=== PATIENT | male | born 1995 | race Caucasian/White ===

== ENCOUNTER 2018-08-14 03:24 | Emergency (ER) | payer BC, MEDICAID, SELFPAY ==
[2018-08-14 03:25] VITALS: BP 145/79; PULSE 103; RESP 27; TEMP 36.8; O2SAT 98; BMI 29.9
--- NOTE | 2018-08-14 03:37 | EKG12_ITS ---
Test Reason : CP Blood Pressure : / mmHG Vent. Rate : 097 BPM Atrial Rate : 097 BPM P-R Int : 164 ms QRS Dur : 090 ms QT Int : 332 ms P-R-T Axes : 026 010 020 degrees QTc Int : 421 ms Normal sinus rhythm Minimal voltage criteria for LVH, may be normal variant Borderline ECG Confirmed by INEZ ALONZO ([id number]), market editor SYLVESTER MAGALLON ([id number]) on 08/17/2018 4:47:04 PM Referred By: LANEY Confirmed By:INEZ ALONZO
[2018-08-14] MEDS: Mag Hydrox/Al Hydrox/Simeth 30 ML UDC PO (03:40)
--- NOTE | 2018-08-14 03:40 | ED.DCSUM_ITS ---
History of Present Illness Chief Complaint: Chest Pain Informant: Patient Narrative: Patient stated the last few days she has had some esophageal burning and pain when he swallows. He is never had this before. He did try Zantac yesterday x1 with minimal relief. Everything he swallows hurts. He denies any excessive alcohol use. He did not get any pills stuck to cause this. No history of GERD. Worsened by swallowing. Relieved by not swallowing. Current severity is mild to moderate. Denies any medical problems. Past Medical History - Allergies and Home Meds Allergies/Adverse Reactions: Allergies promethazine HCl [From Phenergan] Adverse Reaction (Verified 08/14/18 03:27) Other Primary Care Physician: Otto Gould III, MD [Primary Care Provider] - Prior records reviewed: Yes Past Medical History: None Surgical History: appendectomy Lives: With Family Smoking Status: Never smoker Alcohol: None Drugs: None Review of Systems General: Denies: Chills, Fever, Sweats Eyes: Denies: Visual changes - bilaterally, Diplopia ENT: Denies: Rhinorrhea, Sore throat Cardiovascular: Reports: Chest pain. Denies: Palpitations Respiratory: Denies: Dyspnea, Cough, Dyspnea on exertion Gastrointestinal: Denies: Abdominal pain, Nausea, Vomiting, Diarrhea, Melena, Hematochezia Genitourinary: Denies: Dysuria, Hematuria, Frequency Musculoskeletal: Denies: Back pain, Extremity Pain Skin: Denies: Rash, Wounds Neurological: Denies: Headache, Weakness, Numbness Physical Exam Vital Signs/Narrative: Vital Signs Temp Pulse Resp BP Pulse Ox 08/14/18 03:25 98.3 F 103 H 27 H 145/79 H 98 Inital Vital Signs reviewed: Yes General: Well nourished, Well developed, No Acute Distress Head: Normocephalic, Atraumatic Eyes: Perrl, EOMI ENT: Moist mucous membranes, No rhinorrhea Neck: Supple, Nontender Cardiovascular: Regular rate, Regular rhythm, No murmurs Respiratory: No distress, CTA bilaterally, Chest nontender Abdomen: Soft, Nontender, Nondistended, Normal bowel sounds Back: Nontender, Normal Inspection Extremities: Nontender, No edema Skin: Normal color, No rash Neurological: Alert, Oriented x3, Cranial nerves II-XII grossly intact, Normal Strength, Normal Sensation Psychological: Normal affect, Normal Mood Diagnostic/Tx/Re-eval - EKG Initial EKG Interpretation: Sinus Rhythm, No Acute Injury Pattern Prior: No Prior - Medical Decision Making I feel the patient has esophagitis. It is unclear the cause however. He will continue Zantac and has this at home. He will use Mylanta [id number] and cold milk. Given a GI cocktail in the emergency department. EKG was obtained shows sinus rhythm at a rate of 97 without acute ischemia. This is not cardiac in my opinion. This appears to be more esophagitis related. We will follow-up as an outpatient. ED Disposition - Plan for ED Patient: Disposition: [facility] Diagnosis: Esophagitis Instructions: Esophagitis Referrals: Otto Gould III, MD [Primary Care Provider] -
[2018-08-14 04:06] VITALS: BP 140/76; PULSE 97; RESP 20; O2SAT 96
== END 2018-08-14 04:07 ==
PROVIDERS: Emergency Provider Emergency Medicine; Family Provider Family Medicine; PCP Family Medicine
DX: K20.9 Esophagitis, unspecified (principal)
CPT/HCPCS: 93005; 99283

== ENCOUNTER 2020-10-09 12:21 | Emergency (ER) | payer BC, SELFPAY ==
[2020-10-09 12:22] VITALS: BP 138/79; PULSE 79; RESP 16; TEMP 36.4; O2SAT 100; BMI 31.4
--- NOTE | 2020-10-09 12:34 | EX.ED.DYSGE1 ---
HPI History of Present Illness Chief Complaint: Rash Informant: patient Narrative Narrative: Patient presents with poison tabitha on the left leg. There is been present for 1 week. It itches. It turned a little bit darker over the weekend which is why he came in today. There is been no bleeding or drainage. Has been trying topical hydrocortisone cream without any relief. He does have a history of poison tabitha in the past. He denies any trouble swallowing, tongue swelling. He denies any lesions in his mouth. PFSH PFSH Home Medications prednisone 40 mg PO DAILY #14 tablet 10/09/20 [Rx Last Taken Unknown] Allergy/AdvReac Type Severity Reaction Status Date / Time promethazine HCl AdvReac Other Verified 10/09/20 12:23 [From Phenergan] Surgical History History of appendectomy Social History Smoking Status: Never smoker ROS ROS ED Constitutional Constitutional ED: Denies chills or fever(s) Eyes Eyes: Denies blurry vision, change in vision, diplopia or loss of vision ENT ENT ED: Reports other; Denies ear pain, rhinorrhea or sore throat Cardiovascular Cardiovascular: Denies chest pain, palpitations or racing heartbeat Respiratory/Chest Respiratory/Chest: Denies cough, dyspnea, dyspnea on exertion or sputum Gastrointestinal Gastrointestinal: Denies abdominal pain, diarrhea, nausea or vomiting Genitourinary Genitourinary ED: Denies dysuria, hematuria or urinary frequency Musculoskeletal Musculoskeletal: Denies back pain, myalgias or neck pain Integumentary Reports rash Neurologic Neurologic: Denies headache(s) or weakness Psychiatric Psychiatric: Denies anxiety or depression Endocrine Endocrinology: Denies polydipsia or polyuria Hematologic/Lymphatic Hematologic/Lymphatic: Denies easy bleeding or easy bruising Allergic/Immunologic Allergic/Immunologic ED: Reports other EXAM Physical Exam Const Vital Signs: 10/09/20 12:22 Temperature 97.5 F L Temperature Source Temporal Pulse Rate 79 Respiratory Rate 16 Blood Pressure 138/79 H Blood Pressure Mean 98 Pulse Ox 100 Oxygen Delivery Method Room Air Positive well nourished and well developed General Appearance ED: well developed HEENT Reports normocephalic Negative for trauma Eyes PERRL and EOMs intact bilaterally Extremity normal to inspection General Extremety ED: Negative for edema or tenderness General Extremity: Negative for edema Neuro oriented x3 Sensorium / Orientation: alert Motor Exam: strength 5/5 throughout Psych mental status grossly normal Skin Skin Narrative: Contact dermatitis appearing rash on the left mid tibial area on the lateral side. No surrounding erythema. No drainage. The darker appearing color in the middle of it does appear to be dried blood Rashes: rashes noted MDM MDM MDM Narrative Medical decision making narrative: Patient appears to have a contact dermatitis, likely poison tabitha. I will give him prednisone to help with the symptoms. He will continue topical hydrocortisone cream. He will follow-up with his PCP. Discharge Plan Triage Chief Complaint: Rash ED Provider: Jordi Shine Dx/Rx/DC Orders Clinical Impression: Contact dermatitis Instructions: ED Poison Tabitha Rash Prescriptions: New prednisone 20 MG tablet 40 mg PO DAILY Qty: 14 RF: 0 Primary Care Provider: Otto Gould III Referrals: Otto Gould III, MD [Primary Care Provider] - Disposition Disposition: Home, self care
== END 2020-10-09 12:49 | disposition home or self-care (01) ==
LOC: ED 12:45
PROVIDERS: Emergency Provider Emergency Medicine; PCP Family Medicine
DX: L25.9 Unspecified contact dermatitis, unspecified cause (principal)
CPT/HCPCS: 99282

== ENCOUNTER 2022-10-31 02:18 | Emergency (ER) | payer BC, SELFPAY ==
--- NOTE | 2022-10-31 | RAD_ITS ---
EXAM: XR CHEST, 1 VIEW CLINICAL INDICATION: Pleuritic Pain Pleuritic Pain TECHNIQUE: Frontal view of the chest. COMPARISON: 05/19/2014. FINDINGS: LUNGS AND PLEURAL SPACES: Unremarkable. No consolidation or edema. No pneumothorax. No effusion. HEART: Unremarkable. Cardiac silhouette not enlarged. MEDIASTINUM: Central airways and mediastinal contour are unremarkable. BONES/JOINTS: Unremarkable. SOFT TISSUES: Unremarkable. RAD/Chest 1 View (Portable) IMPRESSION: No radiographic evidence of acute cardiopulmonary disease. Electronically Signed: Jay Tijerina MD at 3:31 EDT Reading Location ID and State: [facility] / [place] , Service support ,
[2022-10-31 02:19] VITALS: BP 153/79; PULSE 90; RESP 18; TEMP 36.6; O2SAT 97; BMI 33.4
[2022-10-31 02:21] VITALS: BP 153/79; PULSE 87; RESP 18; TEMP 36.6; O2SAT 96
--- NOTE | 2022-10-31 02:25 | EX.ED.DYSGE1 ---
HPI History of Present Illness Chief Complaint: Flank Pain Narrative Narrative: 27-year-old male who denies significant past medical history presents with left-sided flank pain/pleuritic chest pain/pain in his back since 7 PM yesterday. This was greater than 6 hours ago. He states he woke up at 7 PM and has pain at the top of my kidney. He denies any fevers or chills. No hematuria or dysuria, no colicky pain. He states when he tries to take a deep breath, he gets pain in his left back. It is mildly pleuritic in nature. He denies any DVT or PE risk factors. No swelling of his legs. No exacerbating or alleviating factors to his left-sided pain. He took Aleve without relief. PFSH PFS Home Medications prednisone 20 mg tablet 40 mg PO DAILY #14 TABLETS 10/09/20 [Rx Last Taken Unknown] Allergy/AdvReac Type Severity Reaction Status Date / Time promethazine HCl AdvReac Other Verified 10/09/20 12:23 [From Phenergan] Surgical History History of appendectomy Social History Smoking Status: Never smoker ROS ROS ED ROS Narrative Constitutional: No fever, no chills. HEENT: No sore throat. No neck pain. No loss of vision. No rhinorrhea. Cardiovascular: Left posterior pleuritic chest pain. No palpitations. No pedal edema. Respiratory: Occasional cough, no shortness of breath. Abdominal: No abdominal pain. No nausea. No vomiting. Genitourinary: No dysuria. No hematuria. Musculoskeletal: No myalgias. No arthralgias. Neurologic: No headaches. No dizziness. No lightheadedness. Skin: No rash. No change in color. Psychiatric: No depression. No anxiety. EXAM Physical Exam Narrative Exam Narrative: Afebrile. Vital signs noted. HEENT: Normocephalic. Atraumatic. PERRL, EOMI. Neck soft and supple. No point tenderness or step off. Cardiovascular: Regular rate and rhythm. No murmurs, rubs, or gallops appreciated. Respiratory: No tachypnea. Lungs clear to auscultation bilaterally. Gastrointestinal: Abdomen soft, nontender, with normoactive bowel sounds. No rebound or guarding. Neurological: Awake. Alert. Nonfocal, nonlateralizing. Skin: No rash. Normal color. No pallor. Musculoskeletal: No pedal edema. Full range of motion extremities. Const Vital Signs: 10/31/22 02:19 10/31/22 02:21 10/31/22 04:25 Temperature 97.9 F 97.9 F Temperature Source Temporal Temporal Pulse Rate 90 87 80 Respiratory Rate 18 18 20 H Blood Pressure 153/79 H 153/79 H 144/83 H Blood Pressure Mean 103 103 103 Pulse Ox 97 96 96 Oxygen Delivery Method Room Air Room Air Room Air MDM MDM MDM Narrative Medical decision making narrative: In the differential diagnosis is pneumothorax versus pulmonary embolism versus pneumonia. We will feel he is really having ACS pain as his history is not indicative of ischemic pain. Comprehensive work-up will be pursued. I do not think he is really having left flank pain consistent with ureterolithiasis as he denies any hematuria, colicky pain, or pain radiating to the front. Comprehensive work-up was pursued. EKG was obtained and interpreted by myself as normal sinus rhythm at 78 bpm without ectopy or acute ST changes. No STEMI. I reviewed his laboratory work, he has slightly elevated white count of 11.5 which I think is nonspecific and he has had leukocytosis in the past. Hemoglobin normal at 14.7 with hematocrit 44.5. Platelet count normal at 364. BMP is grossly unremarkable with normal BUN and creatinine, normal electrolytes. High-sensitivity troponin is less than 3, and this is greater than a 6-hour troponin. I do not feel that serial enzymes are indicated. I reviewed and independently interpreted his chest x-ray in 1 view which shows no acute process, no pneumothorax or infiltrate. I reviewed the radiology report which confirms my independent interpretation. I do not feel antibiotics are indicated. Of significance is his D-dimer which is elevated at 0.59. CTA of the chest was added to rule out pulmonary embolism. Patient declined analgesia here in the emergency department. I reviewed the CTA results and there is no evidence of pulmonary embolism. Urinalysis was reviewed and there is no evidence of infection or large amount of red blood cells making me think that he has a kidney stone and would require CT imaging of the abdomen and pelvis. I do not feel antibiotics are indicated. At this point in time, I feel he can be discharged safely home with follow-up to her primary care provider. I do not feel that he requires observation. Return instructions to the emergency department were reviewed. Disposition is discharged home in stable condition. History & Record Review Discussion w/independent historian: Patient Additional record(s) reviewed:: Prior ED visit (Noncontributory to current chief complaint) Lab Data Attestation: I reviewed the patient's lab results. Labs: Laboratory Results - last 24 hr 10/31/22 10/31/22 10/31/22 02:20 02:20 02:20 WBC 11.5 H RBC 5.30 Hgb 14.7 Hct 44.5 MCV 84.0 MCH 27.7 MCHC 33.0 RDW Std Deviation 35.6 RDW Coeff of Ariana 11.8 Plt Count 364 MPV 9.7 Immature Gran % (Auto) 0.300 Neut % (Auto) 56.2 Lymph % (Auto) 33.4 [place] % (Auto) 7.6 Eos % (Auto) 1.7 Baso % (Auto) 0.8 Absolute Neuts (auto) 6.4 Absolute Lymphs (auto) 3.83 Nucleated RBC % 0 D-Dimer Quant (PE/DVT) 0.59 H* Sodium 139 Potassium 3.9 Chloride 106 Carbon Dioxide 25.0 Anion Gap 8 BUN 15 Creatinine 1.07 Estim Creat Clear Calc 126.14 Est GFR (MDRD) Af Amer 108 Est GFR (MDRD) Non-Af 89 BUN/Creatinine Ratio 14.0 Glucose 101 Calcium 9.3 Troponin I High Sens < 3 L Urine Color Urine Clarity Urine pH Ur Specific [place] Urine Protein Urine Glucose (UA) Urine Ketones Urine Occult Blood Urine Nitrite Urine Bilirubin Urine Urobilinogen Ur Leukocyte Esterase Urine RBC Urine WBC Ur Squamous Epith Cells Urine Bacteria Urine Mucus 10/31/22 03:50 WBC RBC Hgb Hct MCV MCH MCHC RDW Std Deviation RDW Coeff of Ariana Plt Count MPV Immature Gran % (Auto) Neut % (Auto) Lymph % (Auto) [place] % (Auto) Eos % (Auto) Baso % (Auto) Absolute Neuts (auto) Absolute Lymphs (auto) Nucleated RBC % D-Dimer Quant (PE/DVT) Sodium Potassium Chloride Carbon Dioxide Anion Gap BUN Creatinine Estim Creat Clear Calc Est GFR (MDRD) Af Amer Est GFR (MDRD) Non-Af BUN/Creatinine Ratio Glucose Calcium Troponin I High Sens Urine Color Yellow Urine Clarity Clear Urine pH 6.5 Ur Specific [place] 1.010 Urine Protein 15 H Urine Glucose (UA) Normal Urine Ketones Negative Urine Occult Blood Negative Urine Nitrite Negative Urine Bilirubin Negative Urine Urobilinogen 1 H Ur Leukocyte Esterase Negative Urine RBC 0-5 SEEN Urine WBC 0 SEEN Ur Squamous Epith Cells 0 SEEN Urine Bacteria 0 SEEN Urine Mucus 0 SEEN Radiography Diagnostic Testing: Clinical Impression(s) from Imaging Studies Chest X-Ray 10/31/22 00:00 IMPRESSION: No radiographic evidence of acute cardiopulmonary disease. Electronically Signed: Jay Tijerina MD at 3:31 EDT , Chest CTA 10/31/22 03:08 IMPRESSION: 1. No evidence for pulmonary embolism, aortic aneurysm, or aortic dissection. 2. No evidence for acute cardiopulmonary pathology. 3. 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 No visualized discrete thymic mass. Suggest clinical correlation regarding possible autoimmune conditions. 4. Fatty liver. 5. Mild splenomegaly. Electronically Signed: Jay Tijerina MD at 4:05 EDT , Discharge Plan Triage Chief Complaint: Flank Pain ED Provider: Chase De La Cruz Dx/Rx/DC Orders Clinical Impression: Flank pain, acute, Pleuritic pain, Elevated d-dimer Instructions: ED Flank Pain, Uncertain Cause, ED Pain, Acute, Uncertain Cause Prescriptions: No Action prednisone 20 MG tablet 40 mg PO DAILY Qty: 14 0RF Primary Care Provider: Care Physician,No Primary Referrals: Sky Franks MD [Med Staff - Active Staff] - As soon as possible Care Physician,No Primary [Primary Care Provider] - Disposition Disposition: Home, Self Care
[2022-10-31 02:36] LABS: Absolute Lymphocyte Count 3.83 X10^3/uL (0.83-4.51); Absolute Neutrophil Count 6.4 X10^3/uL (2.0-7.7); Basophil# 0.09 X10^3/uL; Basophil% 0.8 % (0-1); Eosinophils% 1.7 % (0-5); Hematocrit 44.5 % (40-54); Hemoglobin 14.7 g/dL (13.0-16.5); Lymphocyte # 3.83 X10^3/ul (0.83-4.51); Lymphocyte % 33.4 % (19-41); Mean Corpuscular Hgb 27.7 pg (27.0-32.0); Mean Platelet Vol. 9.7 fl (6.2-12.0); Monocyte# 0.87 X10^3/uL; Monocyte% 7.6 % (0-10); NRBC Flagged by Analyzer 0 % (0-5); Neutrophil # 6.42 X10^3/uL (2.7-7.7); Neutrophil % 56.2 % (47-70); Platelet Count 364 K/mm3 (150-450); RBC Distribution Width CV 11.8 % (11.6-14.6); RBC Distribution Width SD 35.6 fl (35.1-43.9); White Blood Count 11.5 K/mm3 (4.4-11.0)
[2022-10-31] MEDS: 0.9% Normal Saline 1,000 ML 999 ML IV (02:47)
[2022-10-31 02:54] LABS: Anion Gap 8 (5-15); BUN 15 mg/dL (7-18); Calcium,Total 9.3 mg/dL (8.5-10.1); Chloride 106 mmol/L (98-107); Creatinine, Serum 1.07 mg/dL (0.70-1.30); EST Glomerular Filtration Rate 89 mL/min (>60); Est Glom Filt Rate - Afr Amer 108 mL/min (>60); Estimated Creatinine Clearance 126.14 ml/min; Glucose 101 mg/dL (74-106); Potassium 3.9 mmol/L (3.5-5.1); Sodium Level 139 mmol/L (136-145); Troponin-I HS < 3 pg/mL (3.0-78.0)
[2022-10-31 03:08] LABS: D-Dimer Quantitative (DVT/PE) 0.59 FEU/ug/m (0.27-0.49)
--- NOTE | 2022-10-31 03:08 | CT_ITS ---
EXAM: CT ANGIOGRAPHY CHEST WITHOUT AND WITH INTRAVENOUS CONTRAST CLINICAL INDICATION: Elevated D Dimer . Pleuritic chest pain. TECHNIQUE: Helically acquired angiography images were obtained of the chest without and with intravenous contrast. This CT exam was performed using one or more of the following dose reduction techniques: automated exposure control, adjustment of the mA and/or kV according to patient size, and/or use of iterative reconstruction technique. MIP reconstructed images were created and reviewed. CONTRAST: IV 100mL [id number] RADIATION DOSE: CTDIvol = 34.63 mGy, DLP = 533.22 mGy-cm COMPARISON: Chest x-ray 10/31/2022. FINDINGS: PULMONARY ARTERIES: Unremarkable. Normal in caliber. No evidence of pulmonary embolism. AORTA: Unremarkable. Normal in caliber. No evidence of dissection. GREAT VESSELS OF AORTIC ARCH: Unremarkable. Normal in caliber. No evidence of dissection. LUNGS AND PLEURAL SPACES: There is mild atelectasis in the posterior lower lung [place]. There is no demonstrated pulmonary infiltrate. No mass. No pleural effusion or thickening. No pneumothorax. HEART: Unremarkable. Heart size is normal. No pericardial effusion. No significant coronary artery calcifications. MEDIASTINUM: There is soft tissue prominence in the anterosuperior mediastinum which probably represents hyperplastic thymic tissue. There is no demonstrated discrete mass. No mediastinal or hilar adenopathy. Esophagus is unremarkable. No hiatal hernia. THYROID: Unremarkable. No thyroid lesions. BONES/JOINTS: Unremarkable. No suspicious lytic or blastic abnormality. LIVER: There is decreased attenuation of the liver consistent with fatty infiltration. SPLEEN: The spleen is mildly enlarged. CT/CTA Chest W/WO Contrast IMPRESSION: 1. No evidence for pulmonary embolism, aortic aneurysm, or aortic dissection. 2. No evidence for acute cardiopulmonary pathology. 3. 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 No visualized discrete thymic mass. Suggest clinical correlation regarding possible autoimmune conditions. 4. Fatty liver. 5. Mild splenomegaly. Electronically Signed: Jay Tijerina MD at 4:05 EDT ,
[2022-10-31 03:54] LABS: Bacteria 0 SEEN /hpf (None Seen); Mucous, Urine 0 SEEN /hpf (<or=2+); Squamous Epithelial Cells - UA 0 SEEN /hpf (0-5); White Blood Cells 0 SEEN /hpf (0-5)
[2022-10-31 04:13] LABS: Color, Urine Yellow (Yellow); Glucose, Dipstick Normal (Normal); Ketone-Dipstick Negative (Negative); Leukocyte Esterase-Dipstick Negative /ul (Negative); Nitrite-Dipstick Negative (Negative); Occult Blood-Urine Negative /ul (Negative); Protein-Dipstick 15 mg/dl (Negative); Urine Bilirubin Dipstick Negative (Negative); Urine Clarity Clear (Clear); Urine Urobilinogen 1 mg/dl (Normal); Urine pH 6.5 (5.0 - 8.0)
[2022-10-31 04:22] LABS: Red Blood Cells-Urine 0-5 SEEN /hpf (0-5)
[2022-10-31 04:25] VITALS: BP 144/83; PULSE 80; RESP 20; O2SAT 96
[2022-10-31 04:29] VITALS: BP 138/89; PULSE 79; RESP 21; O2SAT 95
== END 2022-10-31 04:44 | disposition home or self-care (01) ==
PROVIDERS: Emergency Provider Emergency Medicine; Visit Provider Emergency Medicine
DX: R10.9 Unspecified abdominal pain (principal); R07.81 Pleurodynia; R79.1 Abnormal coagulation profile; Z90.49 Acquired absence of other specified parts of digestive tract
CPT/HCPCS: 36415; 71045; 71275; 80048; 81001; 84484; 85025; 85379; 93005; 96360; 99284; J7030; Q9967; A4216

== ENCOUNTER 2022-12-07 03:09 | Emergency (ER) | payer OTHER, BC, SELFPAY ==
[2022-12-07 03:11] VITALS: BP 150/93; PULSE 97; RESP 18; TEMP 36.4; O2SAT 98; BMI 32.8
--- NOTE | 2022-12-07 03:16 | EDS_ITS ---
HPI History of Present Illness Chief Complaint: Laceration Informant: patient Narrative Narrative: Laceration left elbow at work. Excellently bumped in the metal object. Bleeding initially controlled with pressure. No anticoagulation medicines. Unknown tetanus history. No similar symptoms in the past. Tetanus Immunization: Unknown Prior similar symptoms: No PFSH PFSH Medical History no medical history Home Medications prednisone 20 mg tablet 40 mg (2 x 20 mg) PO DAILY #14 TABLETS 10/09/20 [Rx Last Taken Unknown] Allergy/AdvReac Type Severity Reaction Status Date / Time promethazine HCl AdvReac Other Verified 12/07/22 03:10 [From Phenergan] Surgical History History of appendectomy Social History Smoking Status: Never smoker ROS ROS ED Constitutional Constitutional ED: Denies chills, fever(s) or sweats Eyes Eyes: Denies change in vision ENT ENT ED: Denies dysphagia or sore throat Cardiovascular Cardiovascular: Denies chest pain, leg edema, palpitations or racing heartbeat Respiratory/Chest Respiratory/Chest: Denies cough, dyspnea or dyspnea on exertion Gastrointestinal Gastrointestinal: Denies abdominal pain, diarrhea, nausea or vomiting Genitourinary Genitourinary ED: Denies dysuria, hematuria or urinary frequency Musculoskeletal Musculoskeletal: Denies back pain, extremity pain or neck pain Integumentary Reports wounds; Denies rash Neurologic Neurologic: Denies headache(s), paresthesias or weakness EXAM Physical Exam Const Vital Signs: 12/07/22 03:11 Temperature 97.5 F L Temperature Source Temporal Pulse Rate 97 Respiratory Rate 18 Blood Pressure 150/93 H Blood Pressure Mean 112 Pulse Ox 98 Oxygen Delivery Method Room Air Positive well nourished and well developed General Appearance ED: well developed and NAD HEENT Reports moist mucous membranes normocephalic and atraumatic Eyes PERRL, EOMs intact bilaterally and conjunctivae normal General Eye ED: Yes normal appearance of both eyes Neck no lymphadenopathy and supple General: Negative for tenderness Chest Wall Chest: Negative for tenderness Resp normal respiratory effort and normal air movement Effort and Inspection: symmetric chest movement; Negative for respiratory distress Cardio regular rate, regular rhythm and no murmurs Peripheral Pulses: pulses 2+ throughout GI normal to inspection, nondistended, normoactive bowel sounds and non-tender Palpation: Negative for guarding or rebound tenderness present Back/Spine no CVA tenderness and no thoracic nor lumbar tenderness Extremity Extremity Narrative: Left upper extremity full range of motion shoulder elbow and wrist. The olecranon a 2 cm laceration subcu extension, no tendon involvement. Minimal bleeding controlled with pressure. No swelling. Neuro vas intact distally. General Extremety ED: Negative for edema or tenderness General Extremity: Negative for edema Neuro oriented x3 and no sensory deficits noted Sensorium / Orientation: awake and alert Skin no rashes or lesions noted and no wounds MDM MDM MDM Narrative Medical decision making narrative: Interventions / MDM: Differential diagnosis: Elbow laceration Diagnosis considered but do not suspect: Olecranon bursitis My EKG interpretation: N/A Imaging independently reviewed and interpreted by myself: N/A External documents reviewed: N/A Test considered but not ordered:N/A ED course: Laceration left elbow. Bleeding controlled. Tetanus updated. This was repaired using simple interrupted sutures total of 2. Good hemostasis and closure. Appropriate work restrictions discussed potential olecranon bursitis due to location of injury. Follow-up with [facility]. Procedure note: Verbal consent. Normal sterile conditions. 2 cc lidocaine 1% local analgesia, 200 cc saline flush of the wound, did note transient swelling into the wound that would improve with drainage. No gross foreign bodies. Wound was closed using a total of 2, 4-0 nylon simple interrupted sutures with good approximation. Patient tolerated procedure well. Re-evaluation: stable Disposition discussed with patient/family/significant other: Patient Case discussed with consulting clinician: N/A This note was generated with [employer] dictation software. It may contain incorrect words, spelling, and punctuation that were not noted in checking the note before signing. Discharge Plan Triage Chief Complaint: Laceration ED Provider: Carlos Jim Dx/Rx/DC Orders Clinical Impression: Tetanus toxoid vaccination administered at current visit, Laceration of left elbow Instructions: ED Laceration, Foot: All Closures Prescriptions: No Action prednisone 20 MG tablet 40 mg PO DAILY Qty: 14 0RF Hold Instructions: Order Completed Primary Care Provider: Care Physician,No Primary Referrals: Care Physician,No Primary [Primary Care Provider] - Activity Restrictions/Additional Instructions: 2 sutures placed on the left elbow. Work restrictions as given. Follow-up with [facility] or your occupational health. Location possibility of developing a traumatic bursitis neck and increased swelling. No current swelling. Wound care as discussed. Status post tetanus. Disposition Disposition: Home, Self Care
[2022-12-07] MEDS: Diphth,Pertuss(Acell),Tet Vac 0.5 ML Vial IM (04:06)
[2022-12-07] MEDS: Lidocaine 1% (20 ml mdv) 20 ML Vial INFILT (04:07)
== END 2022-12-07 05:12 | disposition home or self-care (01) ==
PROVIDERS: Emergency Provider Emergency Medicine; Visit Provider Emergency Medicine
DX: S51.012A Laceration without foreign body of left elbow, initial encounter (principal); W22.09XA Striking against other stationary object, initial encounter; Y99.0 Civilian activity done for income or pay; Z23 Encounter for immunization
CPT/HCPCS: 12001; 90471; 90715; 99283